=== PATIENT | male | born 1960 | race Caucasian/White ===

== ENCOUNTER → 2021-03-01 | Outpatient (CLI) | payer MEDICARE, OTHER | LOC: MRI 02-22 09:00 | DX: M62.50 Muscle wasting and atrophy, not elsewhere classified, unspecified site (principal); M50.30 Other cervical disc degeneration, unspecified cervical region; R29.6 Repeated falls; R53.1 Weakness; M48.02 Spinal stenosis, cervical region | CPT/HCPCS: 36415; 70553; 72141; 82565; A9577 ==